=== PATIENT | male | born 1985 | race Caucasian/White ===

== ENCOUNTER 2023-08-28 11:00 | Emergency (ER) | payer MEDICAID ==
[~2023-08-28] VITALS: Ht 160 cm; Wt 81.6 kg
[2023-08-28 11:08] VITALS: BP_SYST 144; PULSE 70; RESP 20; TEMP 98.3; O2SAT 98
[2023-08-28 12:14] LABS: BASOPHILS % (AUTO) 0.5 % (0.0-2.0); EOSINOPHILS # (AUTO) 0.2 K/uL (0.0-0.4); HEMATOCRIT 43.4 % (36-54); HEMOGLOBIN 14.6 g/dL (14.0-18.0); LYMPHOCYTES % (AUTO) 38.4 % (20.5-51.5); MEAN CORPUSCULAR HEMOGLOBIN 30 pg (27-31); MEAN CORPUSCULAR HGB CONC 34 % (32-36); MEAN CORPUSCULAR VOLUME 90 fL (79.0-98.0); MONOCYTES # (AUTO) 0.8 K/uL (0.0-1.0); MONOCYTES % (AUTO) 9.9 % (1.7-9.3); NEUTROPHILS # (AUTO) 3.8 K/uL (1.8-7.7); NEUTROPHILS % (AUTO) 48.2 % (40.0-70.0); PLATELET COUNT (AUTO) 208 K/uL (130-430); RED BLOOD CELL COUNT(AUTO) 4.82 MIL/uL (4.2-6.2); RED CELL DISTRIBUTION WIDTH 14.1 % (9.0-15.0); WHITE BLOOD COUNT (AUTO) 7.9 K/uL (4.8-10.8)
[2023-08-28 12:40] LABS: CALCIUM 8.4 mg/dL (8.4-11.0); CREATININE 1.24 mg/dL (0.55-1.30); POTASSIUM 4.2 mmol/L (3.5-5.1)
[2023-08-28 13:04] LABS: BILIRUBIN,URINE NEGATIVE (NEGATIVE); BLOOD, URINE NEGATIVE (NEGATIVE); CLARITY/URINE CLEAR (CLEAR); COLOR,URINE YELLOW (YELLOW); GLUCOSE,URINE NEGATIVE (NEGATIVE); KETONES,URINE NEGATIVE (NEGATIVE); LEUKOCYTE ESTERASE ,URINE NEGATIVE (NEGATIVE); NITRITE, URINE NEGATIVE (NEGATIVE); PROTEIN URINE NEGATIVE (NEGATIVE); UROBILINOGEN,URINE 0.2 (0.2-1.0)
[2023-08-28] MEDS ORDERED: METR-154 PO (13:14)
[2023-08-28 13:25] VITALS: BP_SYST 144; PULSE 70; RESP 20; TEMP 98.3; O2SAT 98
== END 2023-08-28 13:25 | disposition home or self-care (01) ==
LOC: SED 11:00
DX: K52.9 Noninfective gastroenteritis and colitis, unspecified (principal); R10.30 Lower abdominal pain, unspecified; Z79.899 Other long term (current) drug therapy
CPT/HCPCS: 36415; 80048; 81001; 81003; 85025; 99284

== ENCOUNTER 2023-10-09 19:44 | Emergency (ER) | payer MEDICAID ==
[~2023-10-09] VITALS: Ht 167.6 cm; Wt 94.3 kg
[~2023-10-09 19:44] MED LIST: METR-154 PO
[2023-10-09 21:00] VITALS: BP_SYST 129; PULSE 76; RESP 18; TEMP 97.7; O2SAT 98
[2023-10-10] MEDS ORDERED: LORA10TA7 PO (00:36)
[2023-10-10] MEDS ORDERED: PRED20TA PO (00:36)
[2023-10-10] MEDS ORDERED: CALA TP (00:36)
[2023-10-10] MEDS: LORATADINE 10 MG TABLET PO ONE (00:49)
[2023-10-10] MEDS: methylPREDNISolone ACETATE 80 MG/ML IM ONE (00:50)
[2023-10-10 01:15] VITALS: BP_SYST 143; PULSE 60; RESP 19; TEMP 97.5; O2SAT 99
== END 2023-10-10 01:14 | disposition home or self-care (01) ==
LOC: SED 19:44
DX: R21 Rash and other nonspecific skin eruption (principal); Z79.899 Other long term (current) drug therapy
CPT/HCPCS: 82947; 36415; 99283; 82948; 96372; J1040